=== PATIENT | male | born 1960 | race Caucasian/White ===

== ENCOUNTER 2016-11-16 16:59 | Emergency (ER) | payer OTHER ==
[~2016-11-16] VITALS: Ht 180.3 cm; Wt 93.5 kg
[2016-11-16 17:07] VITALS: BP 152/91; TEMP 37; Ht 180.3 cm; Wt 93.5 kg
[2016-11-16] MEDS ORDERED: CITA40TA12 PO (17:25)
[2016-11-16] MEDS ORDERED: NAPR1TAB9 PO (17:25)
[2016-11-16] MEDS ORDERED: TAMS0.4C38 PO (17:25)
[2016-11-16] MEDS ORDERED: HYDROCODONE/ACETAMOPHEN 5/325MG TAB PO ONE (18:00)
[2016-11-16] MEDS ORDERED: XYLOCAINE 1%/SOD BICARB 20 ML VIAL INFIL ONE (18:00)
[2016-11-16] MEDS ORDERED: HYDR-5688 PO (18:57)
[2016-11-16] MEDS ORDERED: CEPH500C2 PO (18:57)
[2016-11-16 19:19] VITALS: PULSE 78; O2SAT 98
--- NOTE | 2016-11-17 15:52 | EMERGENCY ROOM VISIT NOTE ---
ED Visit Note First contact with patient: 17:52 Chief Complaint: Left thumb laceration. History of Present Illness: Mr. Victoria is a 56-year-old white male who ambulates into the ED complaining of a left thumb laceration. Patient reports he cut his thumb with a new utility knife less than 1 hour before he arrived in the ED. This was not a work-related injury. He reports after he cut himself he looked at the wound and noted some spurting blood. He did apply pressure but did not wash his wound. On arrival to the emergency department the nurses also reported there is a spurting component to his bleeding and he used an coagulant powder on the wound to control bleeding. Associated with his pain he reports he has a stinging, burning and throbbing sensations in the thumb. He rates his discomfort 6/10. His pain is nonradiating. His pain worsens with palpation. He has not identified any alleviating factors related to the pain. He did not take a medications for pain prior to arrival at the hospital. He denies any associated symptoms including other finger pain, thumb weakness/numbness/tingling. Review of Systems: As noted above in history of present illness. Past Medical History: Patient denies. Current Medications: Celexa, Flomax, Aleve. Allergies to Medications: Sulfa. Social History: Patient is currently employed; he feels safe in his home environment; he denies tobacco use. Tetanus Immunization Status: Patient reports less than 10 years. Physical Examination: Vital Signs: Date Time Temp Pulse Resp B/P Pulse Ox O2 Delivery O2 Flow Rate FiO2 11/16/16 19:19 78 19 98 11/16/16 17:07 37.0 78 18 152/91 95 Room Air GENERAL: 56-year-old male in mild distress due to pain, nontoxic-appearing, afebrile and hemodynamically stable. NEUROLOGICAL: Awake, alert and oriented to person, place and time. Answering questions appropriately and following commands. SKIN: Warm, dry and pink. Left Thumb: Over the medial aspect of the thumb the patient has a J-shaped laceration; this laceration has a small component of superficial measuring approximately 1.5 cm and a full-thickness component measuring 4.4 cm LEFT THUMB: No gross bony deformity. Full range of motion in flexion and extension of the MCP and interphalangeal joint against resistance. No obvious tendon injury. He was able to distinguish light and sharp sensations through all dermatomes of the thumb. Throughout the thumb the skin was warm and pink and capillary refill was brisk. ED Course: Patient is assessed as noted above. Wound Repair: Complexity: Basic Verbal consent was obtained after the risks and benefits were explained. The skin was prepped with betadine and a sterile field set. Wound edges of the wound was anesthetized with 4.5 ml buffered 1% lidocaine. The wound was explored for foreign bodies and none found. Copious irrigation was performed using sterile saline. With direct pressure the bleeding subsided. Debridement was not performed. The wound edges were approximated using 5-0 Ethilon with 11 simple interrupted sutures. Hemostasis and excellent approximation was achieved. Patient was placed in a thumb spica splint. Antibacterial ointment and a sterile dressing applied. No complications and the patient tolerated the procedure well. Patient was given one Crowder tablet 5/325 mg by mouth for pain. Patient was educated about tonight's findings and instructed on his treatment plan; he verbalizes understanding and agreement with this plan. Clinical Impression: Laceration of the left thumb. Disposition: Patient discharged home in stable condition; prior to departure he was reassessed and subjectively reported he was pain-free. Plan: Comfort measures, wound care, and signs of infection were discussed with the patient. Patient was prescribed Crowder for pain control and instructed on its use and was also educated on standard precautions. Patient was prescribed Keflex for antibiotic prophylaxis. Patient was encouraged to follow-up with personal physician or return emergency department in days and/or signs of infection.
== END 2016-11-16 19:23 | disposition home or self-care (01) ==
LOC: C.EDB 17:00 → C.EDD 19:23
DX: S61.012A Laceration without foreign body of left thumb without damage to nail, initial encounter (principal); W26.0XXA Contact with knife, initial encounter; Z79.899 Other long term (current) drug therapy; Z88.2 Allergy status to sulfonamides

== ENCOUNTER 2017-03-30 15:59 | Emergency (ER) | payer OTHER ==
[~2017-03-30] VITALS: Ht 180.3 cm; Wt 200.0 kg
[~2017-03-30 15:59] MED LIST: CITA40TA12 PO; HYDR-5688 PO; NAPR1TAB9 PO; TAMS0.4C38 PO
[2017-03-30] MEDS ORDERED: CEFAZOLIN IV 1,000 MG in DEXTROSE 5% 50ML 50 ML IV STA (16:03)
[2017-03-30] MEDS ORDERED: ONDANSETRON INJ 2 MG/ML 2 ML VIAL IV STA (16:03)
[2017-03-30] MEDS ORDERED: MoRPHine SULFATE 4 MG/ML 1 ML CARP\\VIAL IV STA (16:03)
[2017-03-30 16:08] VITALS: Ht 180.3 cm; Wt 200.0 kg
[2017-03-30] MEDS ORDERED: CEFAZOLIN SOD 1 GM VIAL ONE (16:12)
[2017-03-30] MEDS ORDERED: HYDROmorphone INJ 1 MG/ML SYR IV STA ×2 (16:12→16:24)
[2017-03-30] MEDS ORDERED: HYDROmorphone INJ 1 MG/ML SYR ONE (16:12)
[2017-03-30 16:19] LABS: BASO % 0.3 %; BASO ABS # 0.03 K/uL (0-0.2); COMPLETE YES; EOS % 2.6 %; HEMATOCRIT 42.9 % (42-52); IG% 0.3 %; LYMPH % 27.3 %; LYMPH ABS # 3.23 K/uL (1.2-3.4); MEAN CELL VOLUME 97.3 fL (80-100); MEAN CORPUSCULAR HEMOGLOBIN 33.1 pg (25-34); MEAN PLATELET VOLUME 9.9 fL (7.4-10.4); MONO % 11.3 %; NEUT % 58.2 %; PLATELET COUNT 297 K/uL (130-400); RED BLOOD COUNT 4.41 M/uL (4.7-6.1); WHITE BLOOD COUNT 11.82 K/uL (4.8-10.8)
[2017-03-30] MEDS ORDERED: XYLOCAINE 1%/SOD BICARB 20 ML VIAL INFIL STA ×2 (16:24→16:27)
[2017-03-30] MEDS ORDERED: BUPIVACAINE 0.5 % 5 MG/1 ML MPF 30ML VIAL INFIL STA (16:27)
[2017-03-30 16:45] LABS: BUN/CREATININE RATIO 16.5 (10-20); CALCIUM 8.4 mg/dl (8.5-10.1); CREATININE 1.1 mg/dl (0.60-1.40); POTASSIUM 4.1 mmol/L (3.5-5.1)
--- NOTE | 2017-03-30 16:46 | DIAGNOSTIC IMAGING REPORT ---
LEFT HAND 3 VIEWS HISTORY: laceration to left hand COMPARISON: None. FINDINGS: Suboptimal positioning of the left hand. Soft tissue laceration with a fracture at the PIP joint of the index finger. There is suggestion of fracture of both the head of the proximal phalanx and base of the middle phalanx. There is associated volar dislocation. IMPRESSION: Fractures and dislocation at the PIP joint of the left index finger. This is now well evaluated due to patient positioning. Electronically signed by: Christian Solares M.D. 03/30/2017 4:44 PM Dictated Date/Time: 03/30/2017 4:42 PM
[2017-03-30 17:01] VITALS: O2SAT 95
[2017-03-30] MEDS ORDERED: MIDAZOLAM HCL 1 MG/ML 2ML VIAL ONE (18:14)
[2017-03-30] MEDS ORDERED: FENTANYL CITRATE INJ 50 MCG/1 ML 2 ML VIAL ONE ×3 (18:14→20:51)
[2017-03-30] MEDS ORDERED: KETAMINE HCL INJ 50 MG/ML 10 ML VIAL ONE (18:20)
[2017-03-30] MEDS ORDERED: PHENYLEPHRINE 100MCG/ML 5ML SYR IV PRN (18:30)
[2017-03-30] MEDS ORDERED: LABETALOL HCL IV 5 MG/ML 20ML IV PRN (18:30)
[2017-03-30] MEDS ORDERED: HYDROmorphone INJ 2 MG/ML SYR/VIAL IV PRN (18:30)
[2017-03-30] MEDS ORDERED: ONDANSETRON INJ 2 MG/ML 2 ML VIAL IV PRN (18:30)
[2017-03-30] MEDS ORDERED: ATROPINE SULFATE 0.1 MG/ML 5ML SYR IV PRN (18:30)
[2017-03-30] MEDS ORDERED: NALOXONE HCL 0.4 MG/1 ML VIAL/CARP IV PRN (18:30)
[2017-03-30] MEDS ORDERED: FLUMAZENIL 0.1 MG/1 ML 10 ML VIAL IV PRN (18:30)
[2017-03-30] MEDS ORDERED: EpHEDrine SULFATE INJ 50 MG/ML AMP IV PRN (18:30)
[2017-03-30] MEDS ORDERED: MEPERIDINE HCL 25 MG/ML CARP IV PRN (18:30)
--- NOTE | 2017-03-30 18:35 | EMERGENCY ROOM VISIT NOTE ---
ED Visit Note First contact with patient: 16:05 Chief Complaint: "Cut off finger". History of Present Illness: This patient is a 56-year-old male who presents to the Emergency Department via private vehicle for evaluation of their left finger digit and dictation. Patient sustained the laceration while attempting to operate a table saw. They report an extensive amount of bleeding initially. They report severe decreased range of motion of the left second digit. Patient rates his current discomfort as a 10/10. Patient's Tetanus status is is currently up-to-date. Medications: As noted below Allergies: Sulfa antibiotics PMH: No pertinent past medical history SHx: Patient lives at home with spouse ROS: All pertinent positive and negative review of systems are appropriately documented in the History of Present Illness. Physical Exam: VITAL SIGNS - Vital signs and nursing notes were reviewed. GENERAL -56-year-old male appearing his stated age who is in no acute distress but appears to be any significant amount of pain. Communicates well with provider and answers questions appropriately. SKIN - there is an obvious bony deformity of the left second digit that is nearly amputated. There is also a deep puncture wound on the posterior aspect of the left third digit at the level of the PIP joint. There is bleeding currently. MUSCULOSKELETAL - Laceration as described above. No range of motion possible of the left second digit. Patient able to flex and extend the left third digit. Other digits unremarkable. VASCULAR - Capillary refill was brisk. IMAGING: LEFT HAND 3 VIEWS HISTORY: laceration to left hand COMPARISON: None. FINDINGS: Suboptimal positioning of the left hand. Soft tissue laceration with a fracture at the PIP joint of the index finger. There is suggestion of fracture of both the head of the proximal phalanx and base of the middle phalanx. There is associated volar dislocation. IMPRESSION: Fractures and dislocation at the PIP joint of the left index finger. This is now well evaluated due to patient positioning. Electronically signed by: Christian Solares M.D. 03/30/2017 4:44 PM Dictated Date/Time: 03/30/2017 4:42 PM ED Course: Patient was seen and evaluated by myself as well as my attending. I was emergently called to the room as the patient was brought back from triage emergently secondary to blood loss and his fractures. There was obvious deformity of the left second digit. I verbally stated that I would like emergent IV access, fluids, 1 g of Ancef, as well as 4 mg of morphine intravenously. X-rays were obtained. Results as above. There is no open fracture of the left first digit. This was then continued with 1 mg of Dilaudid 2. Patient was then feeling better. Risks and benefits of anesthetizing the wound was discussed with the patient who verbalizes understanding. Verbal consent was obtained prior to performing the procedure. 10 cc of 50/50 1% buffered lidocaine and 0.5. Again was used to perform a digital block of the left second and third digits. Patient tolerated this well. The wound was then wrapped with a nonadherent bandage. This was to help with bleeding. Hemostasis was achieved as the patient then held his hand above his head. My attending spoke with the on-call hand specialist, Dr. Quispe. The patient at this time appears to be stable for operative management. I did obtain basic labs. No emergent findings noted. No significant hemoglobin change. Patient is a scheduled to go to the operating room for repair of his fingers. In the evaluation and treatment of this patient, the following differential diagnoses were considered: Finger Fracture, Finger Dislocation, Finger Sprain, Finger Contusion, Jersey Finger, or Mallet Finger. Current/Historical Medications Scheduled Citalopram Hydrobromide (Celexa), 40 MG PO DAILY Tamsulosin Hcl (Flomax), 0.4 MG PO QAM Scheduled PRN Naproxen (Aleve), 440 MG PO DIRECTED PRN for Pain Oxycodone/Acetaminophen 5MG/325MG (Percocet 5MG/325MG), 1-2 TABLETS PO Q4H PRN for Pain Allergies Coded Allergies: Sulfa Antibiotics (Unverified Allergy, Unknown, RASH, 03/30/17) Vital Signs Date Time Temp Pulse Resp B/P Pulse Ox O2 Delivery O2 Flow Rate FiO2 03/30/17 22:00 37.2 68 16 131/92 94 Room Air 03/30/17 21:26 37.2 82 22 124/68 93 Room Air 03/30/17 21:21 37.1 03/30/17 21:21 137/88 03/30/17 21:19 85 17 100 03/30/17 21:19 83 17 03/30/17 21:17 137/89 03/30/17 21:14 95 22 95 03/30/17 21:14 95 22 03/30/17 21:13 92 20 03/30/17 21:13 94 20 93 03/30/17 21:08 80 24 03/30/17 21:08 80 24 92 03/30/17 21:07 80 18 03/30/17 21:07 89 18 92 03/30/17 21:06 131/92 03/30/17 21:02 84 21 03/30/17 21:02 83 21 92 03/30/17 21:01 138/91 03/30/17 20:57 84 25 95 03/30/17 20:57 83 25 03/30/17 20:56 146/75 03/30/17 20:52 82 20 03/30/17 20:52 82 20 93 03/30/17 20:51 153/93 03/30/17 20:49 163/97 03/30/17 20:47 91 23 92 03/30/17 20:47 89 23 03/30/17 20:42 89 26 03/30/17 20:42 88 26 94 03/30/17 20:39 140/95 03/30/17 20:37 91 22 96 03/30/17 20:37 37.2 90 16 140/95 99 Mask 10 03/30/17 20:37 91 22 03/30/17 18:07 37.2 66 16 136/79 94 Room Air 03/30/17 17:01 80 18 141/81 95 Room Air 03/30/17 16:08 37.1 68 18 181/76 96 Room Air 03/30/17 16:00 72 18 181/76 95 Room Air Laboratory Results 03/30/17 16:04 Red Blood Count 4.41, Mean Corpuscular Volume 97.3, Mean Corpuscular Hemoglobin 33.1, Mean Corpuscular Hemoglobin Concent 34.0, Mean Platelet Volume 9.9, Neutrophils (%) (Auto) 58.2, Lymphocytes (%) (Auto) 27.3, Monocytes (%) (Auto) 11.3, Eosinophils (%) (Auto) 2.6, Basophils (%) (Auto) 0.3, Neutrophils # (Auto ) 6.89, Lymphocytes # (Auto) 3.23, Monocytes # (Auto) 1.33, Eosinophils # (Auto ) 0.31, Basophils # (Auto) 0.03 03/30/17 16:04 Test 03/30/17 16:04 White Blood Count 11.82 K/uL (4.8-10.8) Red Blood Count 4.41 M/uL (4.7-6.1) Hemoglobin 14.6 g/dL (14.0-18.0) Hematocrit 42.9 % (42-52) Mean Corpuscular Volume 97.3 fL (80-100) Mean Corpuscular Hemoglobin 33.1 pg (25-34) Mean Corpuscular Hemoglobin Concent 34.0 g/dl (32-36) Platelet Count 297 K/uL (130-400) Mean Platelet Volume 9.9 fL (7.4-10.4) Neutrophils (%) (Auto) 58.2 % Lymphocytes (%) (Auto) 27.3 % Monocytes (%) (Auto) 11.3 % Eosinophils (%) (Auto) 2.6 % Basophils (%) (Auto) 0.3 % Neutrophils # (Auto) 6.89 K/uL (1.4-6.5) Lymphocytes # (Auto) 3.23 K/uL (1.2-3.4) Monocytes # (Auto) 1.33 K/uL (0.11-0.59) Eosinophils # (Auto) 0.31 K/uL (0-0.5) Basophils # (Auto) 0.03 K/uL (0-0.2) RDW Standard Deviation 49.5 fL (36.4-46.3) RDW Coefficient of Variation 13.8 % (11.5-14.5) Immature Granulocyte % (Auto) 0.3 % Immature Granulocyte # (Auto) 0.03 K/uL (0.00-0.02) Anion Gap 7.0 mmol/L (3-11) Est Creatinine Clear Calc Drug Dose 129.6 ml/min Estimated GFR () 85.3 Estimated GFR (Non- 73.6 BUN/Creatinine Ratio 16.5 (10-20) Calcium Level 8.4 mg/dl (8.5-10.1) Medications Administered Medications (Trade) Dose Ordered Sig/Omi Route Start Time Stop Time Status Last Admin Dose Admin Morphine Sulfate (MoRPHine SULFATE INJ) 4 mg NOW STAT IV 03/30/17 16:03 5/24/17 16:05 DC 03/30/17 16:10 4 MG Ondansetron HCl (Zofran Inj) 4 mg NOW STAT IV 03/30/17 16:03 03/30/17 16:05 DC 03/30/17 16:11 4 MG Hydromorphone HCl (Dilaudid Inj) 1 mg NOW STAT IV 03/30/17 16:12 03/30/17 16:13 DC 03/30/17 16:12 1 MG Cefazolin Sodium (Ancef Inj) 1,000 mg STK-MED ONCE .ROUTE 03/30/17 16:12 03/30/17 16:13 DC 03/30/17 16:12 1,000 MG Hydromorphone HCl (Dilaudid Inj) 1 mg NOW STAT IV 03/30/17 16:24 03/30/17 16:25 DC 03/30/17 16:28 1 MG Fentanyl Citrate (Fentanyl Inj) 25 mcg Q5M PRN IV 03/30/17 18:30 03/30/17 23:30 DC 03/30/17 21:00 25 MCG Bupivacaine HCl (Marcaine 0.5% MPF Inj) 30 ml STK-MED ONCE .ROUTE 03/30/17 19:04 03/30/17 19:05 DC 03/30/17 19:04 16 ML Bacitracin (Bacitracin Inj) 50,000 units STK-MED ONCE .ROUTE 03/30/17 19:05 03/30/17 19:06 DC 03/30/17 19:05 50,000 UNITS Oxycodone/ Acetaminophen (Percocet 5-325mg Tab) 2 tab STK-MED ONCE .ROUTE 03/30/17 21:42 03/30/17 21:43 DC 03/30/17 21:45 2 TAB Departure Information Prescriptions Oxycodone/Acetaminophen 5MG/325MG (PERCOCET 5MG/325MG) Tab 1-2 TABLETS PO Q4H Y for Pain, #30 TAB Prov: Zeb Quispe MD 03/30/17 Referrals No Doctor, Assigned (PCP) Patient Instructions [facility]
[2017-03-30] MEDS ORDERED: LIDOCAINE HCL 1% 20 ML VIAL ONE (19:04)
[2017-03-30] MEDS ORDERED: BUPIVACAINE 0.5 % 5 MG/1 ML MPF 30ML VIAL ONE (19:04)
[2017-03-30] MEDS ORDERED: BACITRACIN 50000 UNIT VIAL ONE (19:05)
[2017-03-30] MEDS ORDERED: SUCCINYLCHOLINE 100MG/5ML SYR IV ONE (19:19)
[2017-03-30] MEDS ORDERED: LIDOCAINE HCL 2% 2 ML VIAL (20MG/ML) ONE (19:19)
[2017-03-30] MEDS ORDERED: SODIUM CHLORIDE 0.9% INJ 10 ML VIAL ONE (19:19)
[2017-03-30] MEDS ORDERED: AMIODARONE HCL INJ 50 MG/ML 3 ML VIAL ONE (19:19)
[2017-03-30] MEDS ORDERED: PROPOFOL IV EMULSION 10 MG/ML 20 ML VIAL IV ONE (19:19)
[2017-03-30] MEDS ORDERED: ONDANSETRON INJ 2 MG/ML 2 ML VIAL ONE (19:19)
[2017-03-30] MEDS ORDERED: EpHEDrine SULFATE INJ 50 MG/ML AMP ONE (19:19)
[2017-03-30] MEDS ORDERED: PHENYLEPHRINE 100MCG/ML 5ML SYR ONE (19:19)
[2017-03-30] MEDS ORDERED: GLYCOPYRROLATE INJ 0.2 MG/ML VIAL ONE (19:32)
--- NOTE | 2017-03-30 20:22 | HISTORY & PHYSICAL EXAMINATION ---
DATE OF ADMISSION: 03/30/2017 Special attention to a left hand injury. HISTORY OF PRESENT ILLNESS: This is a 56-year-old male, who was using a table saw today. He has had an open laceration of the dorsal aspect of the left index finger and middle finger. He presents with deformity of the index finger consistent with extensor tendon laceration and open fracture with exposed bone in the region of the left index finger PIP joint. PAST MEDICAL HISTORY: Anxiety/depression. He denies any other systemic medical problems. MEDICATIONS: Celexa. SOCIAL HISTORY: Smokes a pack a day. He does not currently work. PHYSICAL EXAMINATION: HEART: Regular rate and rhythm. LUNGS: Show expiratory wheezes. EXTREMITIES: Left hand exam; shows 85 degree extensor at the PIP joint of the left index finger, a large open wound of the dorsal aspect of the PIP joint, with a open laceration thru the bone and extensor tendon injury and evidence of exposed bone is seen. The left middle finger examination does show laceration over the dorsal aspect of the PIP joint, approximately 1 cm. The patient does have active flexion. The fingers are grossly warm and well-perfused, but exam is limited secondary to patient's discomfort and bleeding. Radiographs 3 views of the left hand does show gross deformity at the PIP joint of the left index. Bone is difficult to evaluate given flexed nature of the finger. Avulsion is seen on the lateral radiograph in the region of the middle finger PIP joint. ASSESSMENT: Table saw injury of left hand in a 56-year-old male. PLAN: We discussed options of amputation versus salvage of finger. We discussed options of irrigation, debridement and possible pinning or open reduction internal fixation of open fracture with extensor tendon repair. At this point, I feel that irrigation, debridement and possible pinning would be best and I discussed with him that the finger may or may not ultimately be salvageable. I discussed certainty of stiffness, loss of motion, etc. and need for further surgery as a possibility as well. Plan for surgical intervention emergently. PIPPA
--- NOTE | 2017-03-30 20:31 | DIAGNOSTIC IMAGING REPORT ---
LEFT HAND INTRAOPERATIVE FLUOROSCOPIC IMAGES CLINICAL HISTORY: Left second digit internal fixation. COMPARISON STUDY: Left hand radiographs performed earlier today. Fluoroscopy time: 39 seconds. FINDINGS: 5 fluoroscopic images demonstrate internal fixation of the left second finger. Alignment of the PIP joint appears anatomic and K wires fixate the PIP joint and fracture of the middle phalanx of the left second finger. Fracture alignment is near anatomic. Fracture of the proximal phalanx is noted. IMPRESSION: Expected findings following internal fixation of the left second finger. Electronically signed by: Bulmaro Gomez M.D. 03/30/2017 8:30 PM Dictated Date/Time: 03/30/2017 8:28 PM
[2017-03-30] MEDS: FENTANYL CITRATE INJ 50 MCG/1 ML 2 ML VIAL IV PRN ×4 (20:45→21:00)
--- NOTE | 2017-03-30 21:18 | Anesthesiology Progress Note ---
Anesthesia Post Op Note Date & Time March 30, 2017 at 21:18 Vital Signs Pain Intensity: 3 Vital Signs Past 12 Hours Date Time Temp Pulse Resp B/P Pulse Ox O2 Delivery O2 Flow Rate FiO2 03/30/17 21:13 92 20 03/30/17 21:13 94 20 93 03/30/17 21:08 80 24 03/30/17 21:08 80 24 92 03/30/17 21:07 80 18 03/30/17 21:07 89 18 92 03/30/17 21:06 131/92 03/30/17 21:02 84 21 03/30/17 21:02 83 21 92 03/30/17 21:01 138/91 03/30/17 20:57 84 25 95 03/30/17 20:57 83 25 03/30/17 20:56 146/75 03/30/17 20:52 82 20 03/30/17 20:52 82 20 93 03/30/17 20:51 153/93 03/30/17 20:49 163/97 03/30/17 20:47 91 23 92 03/30/17 20:47 89 23 03/30/17 20:42 89 26 03/30/17 20:42 88 26 94 03/30/17 20:39 140/95 03/30/17 20:37 91 22 96 03/30/17 20:37 37.2 90 16 140/95 99 Mask 10 03/30/17 20:37 91 22 03/30/17 18:07 37.2 66 16 136/79 94 Room Air 03/30/17 17:01 80 18 141/81 95 Room Air 03/30/17 16:08 37.1 68 18 181/76 96 Room Air 03/30/17 16:00 72 18 181/76 95 Room Air Notes Mental Status: alert / awake / arousable, participated in evaluation Pt Amnestic to Procedure: Yes Nausea / Vomiting: adequately controlled Pain: adequately controlled Airway Patency, RR, SpO2: stable & adequate BP & HR: stable & adequate Hydration State: stable & adequate Anesthetic Complications: no major complications apparent
[2017-03-30 21:26] VITALS: BP 124/68; PULSE 82; TEMP 37.2; O2SAT 93
--- NOTE | 2017-03-30 21:27 | [facility] Post Operative Brief Note ---
Immediate Operative Summary Operative Date March 30, 2017. 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
[2017-03-30] MEDS ORDERED: OXYC-57 PO (21:29)
[2017-03-30] MEDS ORDERED: OXYCODONE/ACETAMINOPHEN 5-325 TAB PO PRN ×2 (21:30)
--- NOTE | 2017-03-30 21:31 | Discharge Instructions ---
Discharge Instructions Date of Service March 30, 2017. Admission Reason for Admission: Charlo Finger Discharge Discharge Diagnosis / Problem: table saw injury to left hand Discharge Goals Goal(s): Decrease discomfort, Improve function Activity Recommendations Activity Limitations: per Instructions/Follow-up section Exercise/Sports Limitations: rest today Shower/Bathe: keep incision dry . Instructions / Follow-Up Instructions / Follow-Up [facility] : Hand /Wrist Instr. ACTIVITY RECOMMENDATIONS: Avoid lifting anything until your first post-operative visit. Keep your hand elevated above the level of your heart at all times. Elbow should be above the level of the heart, and hand kept above the elbow. ~ You may use a sling if necessary. Ice the affected extremity a minimum of 3-4 times a day, 20 minutes each time. SPECIAL CARE INSTRUCTIONS: * Your bandage should be left in place until seen in the office. * Some drainage onto the dressing may occur.~ This is normal. * If the bandage feels excessively tight, you may loosen the elastic bandage.~ Then call the physician's office for further instructions. * You should move your fingers regularly, making a fist and extending them, unless otherwise instructed. SPECIAL PRECAUTIONS: * If you notice increased drainage, fever over 101 degrees F. or severe, unremitting pain, call your physician/office at . * You may have been prescribed pain medication.~ If you experience nausea and/ or skin rash, discontinue this medication and contact our office for an alternative medication. Pain Medication: a. You will be prescribed pain medication upon discharge that should last till your first post-operative appointment. b. You may also take Advil, Ibuprofen or Aleve between medication doses if you do not have any contraindication to taking them. c. You may also take Advil, Ibuprofen, Aleve or Tylenol in place of your pain medication if the pain is tolerable. FOLLOW UP VISIT: If appointment is not already scheduled: Please call [facility] to make a follow-up appointment after your surgery at . Follow up appointment with Dr. Quispe or his PA: next tuesday elevate the hand at all times. May wiggle the tip of the finger Current Hospital Diet Patient's current hospital diet: Regular Diet Discharge Diet Recommended Diet: Regular Diet Procedures Procedures Performed: incision and drainage of open fracture, Open reduction internal fixation of intrarticular PIP joint fracture - left Index finger epxsloration penetrating wound - left middle finger Pending Studies Studies pending at discharge: no Medical Emergencies . Who to Call and When: Medical Emergencies: If at any time you feel your situation is an emergency, please call 911 immediately. . Non-Emergent Contact Non-Emergency issues call your: Primary Care Provider . "Provider Documentation" section prepared by Garo Flores. . VTE Core Measure Inpt VTE Proph given/why not?: Contraindicated
[2017-03-30] MEDS ORDERED: OXYCODONE/ACETAMINOPHEN 5-325 TAB ONE (21:42)
[2017-03-30] MEDS ORDERED: PERCOCET HOME PACK PO ONE (21:45)
[2017-03-30] MEDS ORDERED: NURSING VERBAL MED ORDER ONE (21:45)
[2017-03-30 22:00] VITALS: BP 131/92; PULSE 68; TEMP 37.2; O2SAT 94
--- NOTE | 2017-03-31 00:16 | OPERATIVE REPORT ---
DATE OF OPERATION: 03/30/2017 PREOPERATIVE DIAGNOSIS: Left hand table saw injury. POSTOPERATIVE DIAGNOSES: 1. Left index finger open PIP joint fracture. 2. Left index finger zone 3 extensor tendon laceration. 3. Left middle finger penetrating wound. PROCEDURE: 1. Left index finger I\T\D open PIP joint fracture. 2. Left index finger ORIF of open PIP joint fracture. 2. Left index finger repair extensor tendon laceration, zone 3. 4. Left middle finger exploration of penetrating wound. FINDINGS: Extensive destruction of the distal joint surface of the PIP joint from saw injury, large full thickness laceration of the extensor tendon, laceration did extend in the region between the volar plate and the bone, on the volar aspect of the bone as well. Middle finger showed a soft tissue laceration without evidence of tendon injury. ANESTHESIA: General. GRAVITY PROSPECTOR: None. COMPLICATIONS: None. INDICATIONS: This is a 56-year-old gentleman who sustained the above-mentioned injury, presents with gross deformity of his finger and open injury with open fracture. The risks and benefits have been discussed including, but not limited to, risk of infection, nerve injury, stiffness, loss of motion, failure to improve, etc. The patient is agreeable and wishes to proceed. DESCRIPTION OF PROCEDURE: Left middle finger was inspected first. There was open laceration at the dorsal aspect of the finger, I performed exploration of penetrating wound. The extensor tendon was identified and this was intact. There was no evidence of extensor tendon laceration. I then washed the wound out thoroughly with 1 liter of normal saline. I trimmed the skin back to fresh-healthy tissue and the skin was closed with a 4-0 Vicryl Rapide in a simple fashion. There was an area of skin loss but superficial tissue was present, which I closed over the extensor tendon, the area where there was skin loss, I left to heal by secondary intention. This was less than 1 cm. Attention was focused on the index finger. The patient had a near amputation to the finger. He had a traumatic saw cut through the PIP joint. He lost a great majority of the substance of the distal portion of the joint and a small portion of the cartilage of the proximal part of the joint was loss as well. Laceration did then extend down to the volar plate. Flexor tendon was explored and this was intact. Laceration extended volarly and actually into the bony cortex on the volar side of the proximal phalanx. Fluoroscopy confirmed that the proximal phalanx was stable without evidence of fracture. The PIP joint; however, was quite unstable and grossly dislocated with a fracture dislocation at the articular surface. I performed irrigation and debridement, open bony fracture and I debrided the skin and subcutaneous tissue and bone. I removed small pieces of bone. The area was irrigated with 2 liters of normal saline. The digital neurovascular bundles then appeared to be in the zone of injury. The patient had a small portion of the remaining articular surface of the middle phalanx which represented the central slip insertion. I reopposed this against the bone by suture repair of the tendon. The tendon was mobilized and I repaired this extensive zone through tendon laceration with 4-0 FiberWire in running interlocking horizontal mattress fashion. I performed ORIF of the PIP joint fracture with a K-wire across the joint when I openly reduced the joint and placed the bony remaining fragment of the joint back in position. The K-wire was then placed across the joint to stabilize and the joint did show good position and showed good stability after K-wire fixation. Given the patient's desire to retain the finger, I elected to attempt to proceed with salvage even though I felt the joint was not significantly viable, respecting the patient's wish for finger salvage. The skin was closed with 4-0 Vicryl Rapide and the tourniquet was let down. The finger did show adequate capillary refill. The patient was placed in a volar splint. I injected Marcaine to the local area at the conclusion of the procedure for pain control. Postoperative plan will be a tendon glide and active DIP motion followed by interval pin removal in approximately 4-6 weeks. I attest to the content of the Intraoperative Record and any orders documented therein. Any exceptio ns are noted below.
== END 2017-03-30 17:50 | disposition still patient (30) ==
LOC: C.EDB 16:00 → C.EDD 17:50
DX: S62.611B Displaced fracture of proximal phalanx of left index finger, initial encounter for open fracture (principal); S66.329A Laceration of extensor muscle, fascia and tendon of unspecified finger at wrist and hand level, initial encounter; S61.233A Puncture wound without foreign body of left middle finger without damage to nail, initial encounter; W31.2XXA Contact with powered woodworking and forming machines, initial encounter; F32.9 Major depressive disorder, single episode, unspecified; F17.200 Nicotine dependence, unspecified, uncomplicated; Z88.2 Allergy status to sulfonamides

== ENCOUNTER 2017-04-05 16:02 | Emergency (ER) | payer OTHER ==
[~2017-04-05] VITALS: Ht 177.8 cm; Wt 93.3 kg
[~2017-04-05 16:02] MED LIST changes: -HYDR-5688 PO; +OXYC-57 PO
[2017-04-05 16:20] VITALS: TEMP 37.5; Ht 177.8 cm; Wt 93.3 kg
[2017-04-05] MEDS ORDERED: OXYC1TAB3 PO (17:43)
[2017-04-05 18:09] VITALS: BP 159/93; PULSE 60; O2SAT 95
--- NOTE | 2017-04-05 21:53 | EMERGENCY ROOM VISIT NOTE ---
ED Visit Note First contact with patient: 16:36 Chief Complaint: Wound recheck. History of Present Illness: Mr. Victoria is a 56-year-old white male who ambulates into the ED requesting wound recheck. Patient reports last week he was in the ED and then eventually went to the OR after he traumatically avulsed his right index finger. According to the medical records patient was to follow-up with Dr. Quispe, orthopedic hand specialist, today but patient reports he lost his discharge instructions and did not know he was supposed to follow-up today and did not have any contact information. Currently patient reports he has been feeling well and has noticed a slight return of distal sensation. He continues to have a significant amount of burning pain in the area around his laceration primarily the posterior aspect of the finger. He rates this discomfort 8/10. The pain is nonradiating. He has not identified any aggravating or alleviating factors related to the pain. He reports that he ran out of his prescribed pain medications just over one day ago and has not taken any additional pain medications. He denies fevers, chills, sweats, hand swelling, decreased sensation. Review of Systems: As noted above in history of present illness. Physical Examination: Vital Signs: Date Time Temp Pulse Resp B/P Pulse Ox O2 Delivery O2 Flow Rate FiO2 04/05/17 18:09 60 16 159/93 95 04/05/17 16:20 37.5 78 18 154/93 97 Room Air GENERAL: 56-year-old male in mild distress due to pain, nontoxic-appearing, afebrile and hemodynamically stable. NEUROLOGICAL: Awake, alert and oriented to person, place and time. Answering questions appropriately and following commands. SKIN: Warm, dry and pink. RIGHT HAND: Patient's surgical pin is in placed. His index finger is pink with good capillary refill. His surgical site is clean dry and intact without signs of infection. He was able to distinguish light sensations over the tip of the finger but not the posterior finger. Capillary refill is brisk. He was able to wiggle his finger without difficulty. ED Course: Patient is assessed as noted above. Patient was educated about today's findings and instructed on his treatment plan ; he verbalizes understanding and agreement with this plan. Clinical Impression: Wound recheck. Disposition: Patient discharged home in stable condition; prior to departure he was reassessed and subjectively reported he was feeling better. Plan: Patient was encouraged to stay in the splint and sling until followed up with orthopedics. Patient was given an additional prescription of OxyIR to 5 mg tablets every 6 hours for total of 2 days. Patient was educated on signs of infection. Patient was encouraged to follow-up with pre billing specialist for definitive care and treatment. Patient was encouraged return the ED for any signs of infection including increasing redness/swelling, red streaking, puslike drainage, fevers, at a controlled pain or any new/concerning symptoms.
== END 2017-04-05 18:13 | disposition home or self-care (01) ==
LOC: C.EDB 16:03 → C.EDD 18:13
DX: Z48.00 Encounter for change or removal of nonsurgical wound dressing (principal)